=== PATIENT | female | born 1990 | race Two or more races ===

== ENCOUNTER 2021-09-02 21:11 | Emergency (ER) | payer OTHER ==
[~2021-09-02] VITALS: Ht 162.6 cm; Wt 48.5 kg
[2021-09-02] MEDS ORDERED: PRENA1 TRUE CO1 EACH (21:27)
[2021-09-03] MEDS ORDERED: MACRODANTIN100 M1 PO (03:03)
== END 2021-09-03 03:13 ==
LOC: ER 21:11
DX: O23.41 Unspecified infection of urinary tract in pregnancy, first trimester (principal); N39.0 Urinary tract infection, site not specified; R10.2 Pelvic and perineal pain; Z3A.01 Less than 8 weeks gestation of pregnancy; Z88.6 Allergy status to analgesic agent

== ENCOUNTER 2021-09-20 17:06 | Emergency (ER) | payer OTHER ==
[~2021-09-20] VITALS: Ht 162.6 cm; Wt 48.5 kg
[~2021-09-20 17:06] MED LIST: MACRODANTIN100 M1 PO; PRENA1 TRUE CO1 EACH
== END 2021-09-20 23:36 | disposition home or self-care (01) ==
LOC: ER 17:06
DX: O21.8 Other vomiting complicating pregnancy (principal); Z3A.08 8 weeks gestation of pregnancy; Z20.822 Contact with and (suspected) exposure to COVID-19; Z88.6 Allergy status to analgesic agent

== ENCOUNTER 2021-10-08 12:33 | Inpatient (IN) | payer OTHER ==
[~2021-10-08] VITALS: Ht 162.6 cm; Wt 48.1 kg
[2021-10-08] MEDS ORDERED: PEPCID AC20 MG PO (13:57)
== END 2021-10-10 08:50 | disposition home or self-care (01) | DRG 833 ==
LOC: OBS/DEL 12:33 → LDR 10-09 07:35 → OBS/DEL 10-09 07:35 → LDR 10-10 08:50
PROVIDERS: ADMIT Obstetrics & Gynecology; ATTEND Obstetrics & Gynecology
PROC: BY49ZZZ Ultrasonography of First Trimester, Single Fetus (ICD-10-PCS; 2021-10-08)
PROC: BU4CZZZ Ultrasonography of Uterus and Ovaries (ICD-10-PCS; 2021-10-08)
PROC: BW40ZZZ Ultrasonography of Abdomen (ICD-10-PCS; 2021-10-08)
PROC: 4A1HXCZ Monitoring of Products of Conception, Cardiac Rate, External Approach (ICD-10-PCS; principal; 2021-10-09)
PROC: BW30ZZZ Magnetic Resonance Imaging (MRI) of Abdomen (ICD-10-PCS; 2021-10-09)
DX: O26.891 Other specified pregnancy related conditions, first trimester (principal); R10.2 Pelvic and perineal pain; O36.80X0 Pregnancy with inconclusive fetal viability, not applicable or unspecified; O26.851 Spotting complicating pregnancy, first trimester; Z3A.11 11 weeks gestation of pregnancy; Z20.822 Contact with and (suspected) exposure to COVID-19
CPT/HCPCS: 74185

== ENCOUNTER 2021-10-20 22:34 | Emergency (ER) | payer OTHER ==
[~2021-10-20] VITALS: Ht 162.6 cm; Wt 48.1 kg
[~2021-10-20 22:34] MED LIST changes: +PEPCID AC20 MG PO
[2021-10-20] MEDS ORDERED: PRENATABS RX T1 EACH PO (22:47)
== END 2021-10-21 04:30 | disposition home or self-care (01) ==
LOC: ER 22:34
DX: O21.8 Other vomiting complicating pregnancy (principal); O21.0 Mild hyperemesis gravidarum; Z3A.13 13 weeks gestation of pregnancy; Z88.6 Allergy status to analgesic agent

== ENCOUNTER 2021-11-10 16:30 | Emergency (ER) | payer OTHER ==
[~2021-11-10] VITALS: Ht 162.6 cm; Wt 49.0 kg
[~2021-11-10 16:30] MED LIST changes: +PRENATABS RX T1 EACH PO
== END 2021-11-10 19:58 | disposition home or self-care (01) ==
LOC: ER 16:30
DX: O26.891 Other specified pregnancy related conditions, first trimester (principal); Z3A.00 Weeks of gestation of pregnancy not specified; M54.9 Dorsalgia, unspecified; Z88.6 Allergy status to analgesic agent

== ENCOUNTER 2021-12-11 11:00 | Outpatient (CLI) | payer OTHER | END 2021-12-11 12:15 | disposition home or self-care (01) | LOC: PRENATAL 11:00 | PROVIDERS: ATTEND Obstetrics & Gynecology Maternal & Fetal Medicine | DX: O35.0XX0 Maternal care for (suspected) central nervous system malformation in fetus, not applicable or unspecified (principal); O35.3XX0 Maternal care for (suspected) damage to fetus from viral disease in mother, not applicable or unspecified; Z3A.20 20 weeks gestation of pregnancy ==

== ENCOUNTER 2021-12-29 17:01 | Outpatient (CLI) | payer OTHER ==
[2021-12-29] MEDS ORDERED: FLONASE ALLERG9.9 ML (17:46)
== END 2021-12-30 13:16 | disposition home or self-care (01) ==
LOC: OBS/DEL 17:01
PROVIDERS: ATTEND Obstetrics & Gynecology
DX: O26.892 Other specified pregnancy related conditions, second trimester (principal); Z3A.22 22 weeks gestation of pregnancy

== ENCOUNTER 2022-01-01 12:54 | Outpatient (CLI) | payer OTHER ==
[~2022-01-01] VITALS: Ht 162.6 cm; Wt 54.4 kg
[~2022-01-01 12:54] MED LIST changes: +FLONASE ALLERG9.9 ML
== END 2022-01-01 20:27 | disposition home or self-care (01) ==
LOC: OBS/DEL 12:54 → LDR 20:11 → OBS/DEL 20:11
PROVIDERS: ATTEND Obstetrics & Gynecology
DX: O26.892 Other specified pregnancy related conditions, second trimester (principal); R10.2 Pelvic and perineal pain

== ENCOUNTER 2022-01-22 22:01 | Outpatient (CLI) | payer OTHER | END 2022-01-23 10:11 | disposition home or self-care (01) | LOC: OBS/DEL 22:01 | PROVIDERS: ATTEND Obstetrics & Gynecology | DX: O47.02 False labor before 37 completed weeks of gestation, second trimester (principal); Z3A.26 26 weeks gestation of pregnancy ==